=== PATIENT | male | born 1960 | race Caucasian/White ===

== ENCOUNTER 2025-04-11 07:41 | Day surgery (SDC) | payer OTHER, SELFPAY ==
--- NOTE | ~2025-04-11 | XR_ITS ---
EXAMINATION: XR fluoroscopy no charge DATE: 04/11/2025 08:58 INDICATION: Left hip articular branch block TECHNIQUE: 6 fluoroscopic images of the left hip were obtained during procedure performed by Dr. Mancilla. Radiologist was not present for the imaging or procedure. The amount of fluoroscopy time used during this procedure was 0.9 minutes. Total DAP was 16.11 mGy. COMPARISON: None. FINDINGS: Images demonstrate small amount of contrast extending to the soft tissues adjacent to the needle tips positioned along the medial margin of the base of the left inferior pubic ramus and along the anterosuperior margin of the left acetabulum or contrast extends craniocaudally along the course of the iliopsoas muscle and tendon. IMPRESSION: 1. Fluoroscopy utilized during pain management procedure at the left hip. See procedure note for further detail. Reviewed, dictated and finalized at location A. IMPRESSION: 1. Fluoroscopy utilized during pain management procedure at the left hip. See p rocedure note for further detail.
--- OUTSIDE RECORDS SUMMARY | 2025-04-11 07:45 | XMS_ITS | Patient Health Record ---
Author Organization [facility] Address [address] [place] [address] Care Team Providers Care Engine Installer Name Role Phone Marquise Reddy Primary Care Provider Jyotsna Almodovar Unavailable [phone] Allergies Allergen (clinical drug ingredient) Drug/Non Drug Allergy documented on EMR Reaction Allergy Type Onset Date Status Ceclor Unknown Drug Allergy Active Reason For Referral No Information Medications Medication SIG (Take, Route, Frequency, Duration) Notes Start Date End Date Status Betamethasone Dipropionate dipropionate 0.05% cream 1 tanya applied topically(Avoid Face) 2 times a day for 2 weeks on then take a 1 week break; Duration: 30 days Active Benadryl Active lidocaine topical Ac tive Immunizations Vaccine Route Administration Date Status Comme nts Influenza Unknown 01/30/2021 Refused Pneumococcal Unknown 01/30/2021 Refused Influenza Unknown 02/13/2021 Refused influenza Unknown 03/13/2021 Refused Social History Tobacco Use: Social History Observation Description Date Details (start date - stop date) Never Smoker NA - NA Social History General Social Info Question Answer Notes Alcohol Did you have a drink containing alcohol i n the past year? No Points 0 Interpretation Negative Smoking Status: never smoked Additional Details Category Social Info Options Details General Occupation Plastic Installer Recreational drug use No Exercise Yes Sunscreen use Yes Utilized a tanning bed No Body Piercings/Tattoos No Yes Section Notes: 1. Are you experiencing any of the following symptom? a. Fever/Chills of 100.4 or greater? b. Cough? c. Shortness of breath or difficulty breathing? d. New loss of taste or smell? e. Muscle or body aches? NO 2. Have you traveled internationally or been on a cruise ship within the last 14 days? NO 3. Have you been tested for COVID-19 and currently pending to receive results? NO 4. Do you reside in the same household as someone who tested positive for COVID- 19 within the last 10 days? NO 5. Have you been in close contact or been exposed to anyone that has tested positive for COVID-19 within the last 10 days? NO 1. Are you experiencing any of the following symptom? a. Fever/Chills of 100.4 or greater? b. Cough? c. Shortness of breath or difficulty breathing? d. New loss of taste or smell? e. Muscle or body aches? NO 2. Have you traveled internationally or been on a cruise ship within the last 14 days? NO 3. Have you been tested for COVID-19 and currently pending to receive results? NO 4. Do you reside in the same household as someone who tested positive for COVID- 19 within the last 10 days? NO 5. Have you been in close contact or been exposed to anyone that has tested positive for COVID-19 within the last 10 days? NO 1. Are you experiencing any of the following symptom? a. Fever/Chills of 100.4 or greater? b. Cough? c. Shortness of breath or difficulty breathing? d. New loss of taste or smell? e. Muscle or body aches? NO 2. Have you traveled internationally or been on a cruise ship within the last 14 days? NO 3. Have you been tested for COVID-19 and currently pending to receive results? NO 4. Do you reside in the same household as someone who tested positive for COVID- 19 within the last 10 days? NO 5. Have you been in close contact or been exposed to anyone that has tested positive for COVID-19 within the last 10 days? NO Problems Problem Type SNOMED Code ICD Code Onset Dates Problem Status W/U Status Risk Notes Problem Contact dermatitis (08257257) Contact dermatitis (L25.9) Active confirmed Problem Inflamed skin tag (L91.8) Active confirmed Problem Erythema intertrigo (45699957) Chafing (L30.4) Active confirmed Plan Of Treatment No Information Insurance Providers Payer Name Payer Address Payer Phone Subscriber Number Group Number Insured Name Patient Relationship to Insured Coverage Start Date Coverage End Date do not use [facility] Claims-ol d [address] [place] [address] [id number] Ousmane Chung Self - patient is the insured Medical (General) History Surgical History Surgery Date(Month/Year) pilonidal cyst removed 1972 foot surgery 2013
--- OUTSIDE RECORDS SUMMARY | 2025-04-11 07:45 | XMS_ITS | Encounter Summary ---
Author Organization [facility] Address [address] [place] [address] Care Team Providers Care Flat Cutter Name Role Phone Toan Manley MD Primary Care Provider + Encounter Details Date Type Department Care Team (Late st Contact Info) Description 02/07/2025 Results Follow-Up [facility] Primary Care at [address] [place] [address] Heide Pichardo NP [address] [facility] [address] [place] [address] Lipid panel Social History Tobacco Use Types Packs/Day Years Used Date Smoking Tobacco: Never PHQ-2 Answer Date Recorded PHQ-2 Total Score (If total score is 3 or more points, staff should administer the PHQ-9) 0 08/18/2024 PHQ-9 Answer Date Recorded PHQ-9 Total Score 2 08/18/2024 Sex and Gender Information Value Date Recorded Sex Assigned at Not on file 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
--- OUTSIDE RECORDS SUMMARY | 2025-04-11 07:45 | XMS_ITS | Clinical Summary ---
Author Organization [facility] [address] Address [address] [facility] [address] [place] [address] Care Team Providers Care Lasting Machine Operator Name Role Phone Toan Manley MD Primary Care Provider + Allergies Active Allergy Reactions Criticality Noted Date Comments Cefaclor Rash Medium 07/20/2024 Medications fluticasone propionate (FLONASE) 50 mcg/actuation nasal spray Administer 2 sprays into each nostril daily 3 each 4 5 Active cetirizine (ZyrTEC) 10 mg tablet Take 1 tablet (10 mg total) by mouth daily as needed for allergies 90 tablet 4 5 07/20/19 26 Active usxoqaurefq-I2-o yaluronic acid 1,000 mg- 25 mcg-1.65 mg tablet Take 2 tablets by mouth daily Active fish,bora,flax oils-om3,6,9no1 1,200 mg capsule Take 1 capsule by mouth daily Active rosuvastatin (CRESTOR) 10 mg tablet Take 1 tablet (10 mg total) by mouth daily 30 tablet 11 5 08/04/19 26 Active meloxicam (Mobic) 15 mg tabletIndication s:Osteoarthritis Take 1 tablet (15 mg total) by mouth daily 90 tablet 3 5 12/07/19 26 Active sildenafiL (VIAGRA) 100 mg tabletIndication s:Erectile Dysfunction Take 1 tablet (100 mg total) by mouth as needed for erectile dysfunction 7 tablet 11 06/24/12/07/19 Active ipratropium (ATROVENT) 42 mcg (0.06 %) nasal sprayIndications :Chronic Non-Allergic Rhinitis Administer 2 sprays into each nostril 4 (four) times a day 15 mL 3 Active Active Problems Problem Noted Date Diagnosed Date HLD (hyperlipidemia) 08/04/2024 Assessment & Plan (02/01/2025 8:29 AM CDT): Crestor 10 mg daily. Compliant with medication. Implement diet and lifestyle modification. ASCVD 10.4. Not a smoker. Orders: Lipid panel; Future Class 1 obesity due to exces s calories with body mass index (BMI) of 30.0 to 30.9 in adult 08/04/2024 Other male erectile dysfunction 07/20/2024 Assessment & Plan (02/01/2025 8:29 AM CDT): No issues with medication, works. No headache no postural hypotension - Continue current treatment Chronic bilateral low back pain with sciatica Assessment & Plan (02/01/2025 8:29 AM CDT): Chronic back pain using meloxicam 15 mg daily. Avoiding NSAIDs. - Continue current treatment - Tylenol okay Seasonal allergies 07/20/2024 Encounters Date Type Department Care Team Description 02/07/2025 8:10 AM CDT Lab [facility] - Outpatient Center at [address] [address] Mixed hyperlipidemia 02/07/2025 Results Follow-Up [facility] Primary Care at [address] [phone] Heide Pichardo NP Lipid panel 02/01/2025 8:15 AM CDT Office Visit [facility] Primary Care at [address] [phone] Toan Manley MD Mixed hyperlipidemia (Primary Dx); Other male erectile dysfunction; Chronic bilateral low back pain with sciatica, sciatica laterality unspecified 01/17/2025 Telephone [facility] Medical [facility] Primary Care at [address] [phone] Toan Manley MD 01/17/2025 Telephone [facility] Primary Care at [address] [phone] Toan Manley MD 01/13/2025 Telephone [facility] Primary Care at [address] [address] Toan Manley MD Referral Request from Last 3 Months Immunizations Immunization Administration Dates Next Due COVID-19 MRNA (MODERNA) .5 M L (50 MCG) VACCINE (12 YEARS AND UP) 08/15/2020 Influenza, Unspecified 02/12/2024,02/27/2023, Moderna Sars-cov-2 Monovalen t Booster Vaccination (12+ YRS) 04/10/2023,02/28/2022,05/24/2021,2020 RSV Vaccine, Pref, Recombina nt, Subunit, Adjuvanted, PF, IM (Arexvy) 07/31/2023 Sars-cov-2 Covid-19 Mrna, Bi valent, Original/omicron Ba.1, A 02/26/2024 ZOSTER Recombinant 04/04/2022 Surgical History Surgery Date Site/Laterality Comments VASECTOMY PILONIDAL CYSTECTOMY Medical History Medical History Date Comments Low back pain Mid back pain Chronic pain disorder Social History Tobacco Use Types Packs/Day Years Used Date Smoking Tobacco: Never Tobacco Cessation:Counseling Given: Not Answered PHQ-2 Answer Date Recorded PHQ-2 Total Score (If total score is 3 or more points, staff should administer the PHQ-9) 0 08/18/2024 PHQ-9 Answer Date Recorded PHQ-9 Total Score 2 08/18/2024 Sex and Gender Information Value Date Recorded Sex Assigned at Not on file Legal 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 Gender Identity Male 07/13/2024 8:37 AM BLOCK SAWYER Sexual Orientation Not on file Obstetrics History Last Filed Vital Signs Vital Sign Reading Time Taken Comments Blood Pressure 124/84 02/01/2025 8:06 AM CDT Pulse 59 02/01/2025 8:06 AM CDT Temperature 36.5 C (97.7 F) 02/01/2025 8:06 AM CDT Respiratory Rate 16 02/01/2025 8:06 AM CDT Oxygen Saturation 97% 02/01/2025 8:06 AM CDT Inhaled Oxygen Concentration - - Weight 100.7 kg (222 lb) 02/01/2025 8:06 AM CDT Height 182.9 cm (6') 02/01/2025 8:06 AM CDT Body Mass Index 30.11 02/01/2025 8:06 AM CDT Plan of Treatment Health Maintenance Due Date Last Done Comments Colon Cancer Screening-Colonoscopy 1960 Hepatitis C Screening 1960 Prostate Cancer Screening-PSA 1960 DTaP/Tdap/Td Vaccine (1 - Tdap) 1971 Hepatitis B Screening 1978 Zoster Vaccine (2 of 2) 05/30/2022 04/04/2022 Influenza Vaccine (#1) 2025 4, 02/27/2023, 02/28/2022 Regular Well Visit/Exam 18-64 07/20/2025 07/20/2024 Depression Screening 08/18/2025 08/18/2024, 08/18/2024, 07/20/2024, Additional history exists Pneumococcal vaccine <65 Aged Out No longer eligible based on patient's age to complete this topic Procedures Procedure Name Priority Date/Time Associated Diagnosis Comments LIPID PANEL Routine 02/07/2025 8:14 AM CDT Mixed hyperlipidemia from Last 3 Months Results * Lipid panel (02/07/2025 8:14 AM CDT) Cholesterol 129 30 - 199 mg/dL Comment: Interpretive Data Ages < or = 19 years Acceptable: <170 mg/dL Borderline high: 170-199 mg/dL High: >or= 200 mg/dL Ages > or = 20 years Desirable: <200 mg/dL Borderline high: 200-239 mg/dL High: >or= 240 mg/dL Literature References: 1. Expert Panel on Integrated Guidelines for Cardiovascular Health and Risk Reduction in Children and Adolescents. Pediatrics 2011;128:S213 2. NCEP Expert Panel. Circulation 2004;110:227 Current Interpretive Data was last revised on 2018. Testing performed by: [address] [address] Triglycerides 113 <=149 mg/dL [facility] Comment: Interpretive Data Ages < or = 9 years Acceptable: <75 mg/dL Borderline high: 75-99 mg/dL High: >or= 100 mg/dL Ages 10 to 20 years Acceptable: <90 mg/dL Borderline high: 90-129 mg/dL High: >or= 130 mg/dL Ages > or = 20 years Desirable: <150 mg/dL Borderline high: 150-199 mg/dL High: 200-499 mg/dL Very high: >or= 499 mg/dL Literature References: 1. Expert Panel on Integrated Guidelines for Cardiovascular Health and Risk Reduction in Children and Adolescents. Pediatrics 2011;128:S213 2. NCEP Expert Panel. Circulation 2004;110:227 Current Interpretive Data was last revised on 2018. Testing performed by: [facility], [address] [place] [address]., [address] HDL 41 >=40 mg/dL [facility] Comment: Interpretive Data Ages < or = 19 years Acceptable: >45 mg/dL Borderline low: 40-45 mg/dL Low: <40 mg/dL Ages > or = 20 years Desirable: >or= 60 mg/dL Low: <40 mg/dL Literature References: 1. Expert Panel on Integrated Guidelines for Cardiovascular Health and Risk Reduction in Children and Adolescents. Pediatrics 2011;128:S213 2. NCEP Expert Panel. Circulation 2004;110:227 Current Interpretive Data was last revised on 2018. Testing performed by: [address] [address] LDL, calculated 67 <=129 mg/dL [facility] Comment: Interpretive Data Ages < or = 19 years Acceptable: <110 mg/dL Borderline high: 110-129 mg/dL High: >or= 130 mg/dL Ages > or = 20 years Optimal: <100 mg/dL Near optimal: 100-129 mg/dL Borderline high: 130-159 mg/dL High: >160 mg/dL Calculated using the Lock LDL-C estimating equation. This equation was implemented on 2024. Prior to this date LDL-C was estimated using the Friedewald equation. Literature References: 1. Expert Panel on Integrated Guidelines for Cardiovascular Health and Risk Reduction in Children and Adolescents. Pediatrics 2011;128:S213 2. NCEP Expert Panel. Circulation 2004;110:227 3. Ashvin Munoz et al. ARMIDA Cardiol. 2019October 13;5(5):540-548. doi: 10.1001/[email or web address] Current Interpretive Data was last revised on 2024. Testing performed by: [address] [address] Non-HDL Cholesterol 88 mg/dL [facility] Comment: Interpretive Data Ages < or = 19 years Acceptable: <120 mg/dL Borderline high: 120-144 mg/dL High: >145 mg/dL Ages > or = 20 years When triglycerides are >200 mg/dL, Non-HDL cholesterol is a secondary target of therapy with treatment goals that are 30 mg/dL greater than the LDL cholesterol target. Literature References: 1. Expert Panel on Integrated Guidelines for Cardiovascular Health and Risk Reduction in Children and Adolescents. Pediatrics 2011;128:S213 2. NCEP Expert Panel. Circulation 2004;110:227 Current Interpretive Data was last revised on 2018. Testing performed by: [address] [address] Chol/HDL ratio 3 [facility] Comment:Testing performed by : [address] [address] Blood 02/07/2025 8:14 AM CDT 02/07/2025 12:41 PM CDT us Toan Manley MD LAB BLOOD ORDERABLES Fin al Result [facility] [address] [place] [address] Department [place] [address] from Last 3 Months Insurance [facility] CLAIMS Care Teams Lasting Machine Operator Relationship Specialty Start Date End Date Toan Manley MD [address] [facility] [address] [place] [address] PCP - General Family Medicine 07/20/24
[2025-04-11 07:59] VITALS: BP 122/76; PULSE 58; RESP 18; TEMP 36.7; O2SAT 99
--- NOTE | 2025-04-11 08:02 | PM.HPGS ---
History of Present Illness History of Present Illness Consent: Risks, benefits, and alternatives have been discussed and questions answered. Patient agrees to proceed with procedure. Chief complaint: Left Hip Pain, hip osteoarthritis Narrative: Ousmane Chung is a 64 year old male with chronic, recalcitrant and disabling left hip and groin pain secondary to degenerative osteoarthritis with failure to respond to aggressive conservative measures including PT, oral and topical analgesics, opioid and nonopioid analgesics, rest, time and activity/behavioral modification over the past 1-2 years who presents for diagnostic/prognostic articular branch blocks of the left femoral and obturator nerves (#1) addressing the left hip joint under fluoroscopic guidance and with contrast control. Review of Systems Review of Systems: Patient denies any new infectious, allergic, cardiopulmonary, neurologic or constitutional symptoms or changes in activity tolerance or exercise capacity including new or progressive SOB/STATON, peripheral edema, productive cough, dysuria, nausea/vomiting, diarrhea, weight change, fevers/chills/night sweats, new or progressive neurologic deficit, cognitive or mood changes since last seen, except as documented in the HPI. All systems reviewed & are unremarkable except as noted in HPI and below PMFSH Past Medical History Medical History (Updated 04/11/25 @ 08:05 by Ministerio Mancilla MD) Left hip pain Allergies Dorsalgia Bilateral hip pain Lumbar stenosis Lumbar spondylosis Lumbar radiculopathy Family History Family History (Updated 02/23/25 @ 09:46 by oCurt Niño MA) Mother Bone cancer Sibling Diabetes mellitus Grandparent Pneumonia Pancreatic cancer Social History Social History (Updated 02/23/25 @ 09:[address] Niño MA) Smoking status: Never smoker Alcohol intake: never Substance use: never Substance use type: does not use Living arrangements: with family Additional living arrangements comments: Spiritual care concerns: No Meds Home Medications and Allergies Home Medications ?Medication ?Instructions ?Recorded ?Confirmed ?Type flaxseed oil 1,300 mg capsule mg PO DAILY 02/23/25 02/23/25 History fluticasone propionate 50 1 inh inhalation ONCE 02/23/25 04/11/25 History mcg/actuation blister powder for inhalation meloxicam 15 mg tablet 15 mg PO DAILY 02/23/25 04/11/25 History rosuvastatin 10 mg tablet 10 mg PO DAILY 02/23/25 04/11/25 History sildenafil 100 mg tablet (Viagra) 100 mg PO DAILY PRN erectile 02/23/25 04/11/25 History dysfunction cetirizine 10 mg capsule (All Day 10 mg PO DAILY 03/30/25 04/11/25 History Allergy (cetirizine)) Allergies Allergy/AdvReac Type Severity Reaction Status Date / Time cefaclor (From [facility]) Allergy Intermediate Rash Verified 04/11/25 07:58 Vital Signs Vital Signs - 24 hr 04/11/25 07:59 Temperature 98.1 F Pulse Rate 58 L Respiratory Rate 18 Blood Pressure 122/76 Pulse Oximetry 99 Oxygen Delivery Room Air Exam Narrative: The patient's physical exam is essentially unchanged from prior examination on 02/23/2025. Specifically, patient demonstrates normal lung capacity, tidal volume and respiratory rate without wheezes, crackles, rales or rubs. Heart rate and rhythm are regular without murmurs, gallops or rubs. No JVD. Pulses 2+ globally without increasing peripheral edema. AAOx3 with no evidence of confusion, intoxication or altered mental state, NC/AT without acute distress or altered consciousness. Speech, cognition, mood, insight and judgment at baseline and within normal limits. Assessment and Plan Assessment and plan (1) Left hip pain: Code(s): M25.552 - Pain in left hip Status: Acute (2) Osteoarthritis of left hip: Code(s): M16.12 - Unilateral primary osteoarthritis, left hip Status: Acute Assessment and Plan: Proceed as planned with diagnostic/prognostic articular branch blocks of the left femoral and obturator nerves (#1) addressing the left hip joint under fluoroscopic guidance and with contrast control. (3) Chronic pain: Code(s): G89.29 - Other chronic pain Status: Acute
--- NOTE | 2025-04-11 08:06 | WPDHPUPDATE1 ---
History and Physical Update Update Date/Time: 04/11/25 08:06 History and Physical has been reviewed, including an updated exam of the patient. There are NO changes in the patient's condition. Risks, benefits, and alternatives have been discussed and questions answered. Patient agrees to proceed with procedure.
--- NOTE | 2025-04-11 08:07 | P.OP_ITS ---
Procedure Note - Detailed Date of Procedure 04/11/25 Pre-op Diagnosis Left Hip Pain, hip osteoarthritis Post-op Diagnosis Same Procedure Performed Left Prognostic Femoral Articular and Obturator Articular Branch Blocks under Fluoroscopic Guidance with Contrast Control. Surgeon Ministerio Mancilla MD Anesthesia Local Description of Procedure INFORMED CONSENT: Risks, benefits and alternatives to the procedure were discussed in detail with the patient who expressed explicit understanding and consent to proceed. Patient was informed verbally and in written form regarding the risks associated with the procedure including the low risk of serious infection, bleeding/bruising, allergic reaction, nerve injury, paralysis, procedural site pain or discomfort, worsening pain and/or mobility, failure to treat and disfigurement. The patient expressed explicit understanding and consent to proceed. All materials required for the procedure were available prior to procedure start. Site and side was marked prior to procedure and confirmed in the presence of the patient. PROCEDURE IN DETAIL: The patient was brought to the procedural suite and placed in the supine position. Patient was made comfortable with use of pillows under the head/shoulder, knees and ankles. Skin overlying anterior and anterolateral surface of the pelvis and thigh at the level of inguinal crease was prepared broadly with ChloraPrep applicator and draped in a sterile manner. Aseptic technique was used throughout. The hip joint of interest was identified in the AP projection and view aligned with the plane of the ipsilateral obturator foramen. Location and course of the femoral artery, vein and accompanying nerve was identified by palpation of the arterial pulse and marked with a sterile skin marker. Local anesthesia was established by infiltration with approximately 3 mL of 0.5% lidocaine via a 1-1/2 inch 27- gauge needle. A 22-gauge 5-inch quincke spinal needle was intermittently advanced in the lateral and superior direction in the AP view (avoiding the course of the femoral vessels) until the needle tip contacted the anterior surface of the medial wall of the obturator foramen. Needle was advanced superiorly until positioned just inferior to the ischial isthmus at the location of the left obturator articular branches. After negative aspiration for blood, CSF or bodily fluid, 0.5 ml of Omnipaque 300 contrast medium was injected demonstrating lack of intra-articular, intravascular dye pattern. After repeat negative aspiration, 0.5ml of 0.5% PF Bupivacaine was injected to effectively block the targeted peripheral nerve. Previously injected contrast was diluted by local anesthetic confirming appropriate spread. No parasthesias elicited. Patient tolerated well. Attention was then turned to the completion of the femoral articular branch block. In the AP projection, a site inferior and lateral to the ipsilateral ASIS was anesthetized by local infiltration with approximately 3 mL of 0.5% lidocaine via a 1-1/2 inch 27-gauge needle. A 22-gauge 5-inch quincke spinal needle was in termittently advanced in medial to lateral direction in the AP view until the needle tip contacted the anterior surface of the superior portion of the acetabulum 5mm superior to the intra-articular space at a point bisecting the femoral head, the approximate location of the left femoral articular branches. After negative aspiration for blood, CSF or bodily fluid, 0.5 ml of the same contrast medium was injected demonstrating lack of intra-articular, intravascular dye pattern. After repeat negative aspiration, 0.5ml of the same local anesthetic mixture was injected to effectively block the targeted peripheral nerve. Previously injected contrast was diluted by local anesthetic confirming appropriate spread. No parasthesias elicited. Patient tolerated the procedure well. Images were saved and documented in the patient chart. Patient's skin was cleansed and sterile bandage applied. The patient tolerated the procedure well. The patient was transported to the recovery area in stable condition where they were observed for an appropriate amount of time prior to discharge, without evidence of complication. Patient was instructed on the completion of a pain diary prior to discharge and instructed to bring this diary with them to their next follow up evaluation. The patient was instructed to avoid excessive activity for the next 48 hours, including frequent use of stairs. They are to monitor for fevers, chills, night sweats, erythema/swelling at the site or any other signs of infection, bleeding/bruising as well as new pain, weakness or numbness in the upper extremity. Should they notice these changes, they are instructed to call our office or report immediately to the nearest Emergency Department if no answer or if after posted office hours. CONTRAST WASTED: 29 ml Omnipaque 300 Complications No immediate complications Condition Stable Disposition Same day [facility] Billing Surgery - Charge Forward: Surgery Billing
[2025-04-11 08:49] VITALS: BP 148/82; PULSE 58; RESP 18; O2SAT 97
[2025-04-11 08:52] VITALS: BP 142/76; PULSE 57; RESP 16; O2SAT 98
[2025-04-11] MEDS: BUPivacaine HCL 0.5% 10 ML AMP (08:52)
[2025-04-11 08:58] VITALS: BP 127/72; PULSE 57; RESP 16; O2SAT 100
== END 2025-04-11 09:13 | disposition home or self-care (01) ==
PROVIDERS: Visit Provider Anesthesiology Pain Medicine
PROC: (CPT 64447; principal; 2025-04-11 08:50)
DX: M25.552 Pain in left hip (principal); M16.12 Unilateral primary osteoarthritis, left hip; G89.29 Other chronic pain
CPT/HCPCS: 64447; 64450; 99199

== ENCOUNTER 2025-05-16 00:56 | Day surgery (SDC) | payer MEDICARE, OTHER, SELFPAY ==
[2025-04-28 11:08] VITALS: BMI 30.4
--- NOTE | 2025-04-28 11:16 | PC.NURSE ---
[facility] has started construction of its new state of the art ER which will open Spring 2026. With this, we anticipate parking may be a challenge for some our surgical patients and families. Parking spaces are limited but are available for all Surgical, obstetrics, and ER patients sharing this lot. If you arrive and find you are having a hard time finding a parking space, please note that we understand the challenges, please drive around the hospital and park near Hospital Entrance 1. When you enter this entrance, you can ask a volunteer to direct or take you back to the surgical waiting area to check in. We appreciate everyone?s understanding of these expected challenges while we build for your future. Report to the Outpatient Waiting Room, entrance under the green pavilion located off [address], at time __0700am on date __05/16/25 . Planned Procedure Time: __0800am .? Time changes happen often and if your time is changed the preop area will call you the afternoon before. - You and your visitor will be asked to self-screen and do not enter if you have any COVID symptoms. Please call surgeon if you need to reschedule. - A mask is optional within the hospital at this time. Patients may have No food from midnight, but may have clear liquids (water, carbonated beverages, clear teas, apple juice) until 2 hours prior to surgery with a maximum of 20 ounces. (0600am) Take only the following medications with a SIP of water on the morning of surgery: ____All am meds except Meloxicam DO NOT STOP ANY OF YOUR OTHER PRESCRIPTION MEDICATIONS PRIOR TO SURGERY EXCEPT THE FOLLOWING Hold all vitamins and supplements for 3 days per anesthesiologist. Medications to discontinue per physician ____Meloxicam for [address] Muñoz Date to take last dose____05/08/25 Please no make-up, nail moroccan, hairspray, perfume, deodorant, or body powder the day of surgery.? No jewelry (including any body piercings) or valuables the day of surgery, leave them at home.? Please take a shower or bath the night before, & the morning of surgery with an antibacterial soap. (Dial Soap)? Wear comfortable, loose fitting clothing. ? NO DRIVING FOR [address] MUÑOZ Pt aware - Jewelry must be removed prior to entering the operating room.? Rings and piercings that are not removed may be cut off. - The hospital will not accept responsibility for valuables.? - Please leave all valuables, including medications, at home the day of surgery. If you are going home after surgery, a licensed cross country truck driver must drive you home.? - NO public transportation without another adult if you receive anesthesia. - We recommend that an adult stay with you for 24 hours following discharge. - We also recommend that you do not drive, make important decision, drink alcoholic beverages, or take any drugs that were not prescribed by your health care provider for at least 24 hours after your discharge time. Follow any additional instructions given to you from your surgeon. Telephone instructions given to ___Patient and asked if any additional questions and then verbalized understanding. Patient advised to call surgeon office or pre surgery nurse liaison [phone] if any additional questions.
--- NOTE | ~2025-05-16 | XR_ITS ---
XR fluoroscopy no charge Indication: Articular branch block left hip TECHNIQUE: Fluoroscopy used during Articular branch block left hip performed by [Ministerio Mancilla MD] on 05/16/2025. 48 seconds with 4 fluoroscopic images captured. FINDINGS: Correlate with procedure note. IMPRESSION: Fluoroscopy used during Articular branch block left hip. Reviewed, dictated and finalized at location I. ENFORCEMENT SUPERVISOR
--- OUTSIDE RECORDS SUMMARY | 2025-05-16 00:59 | XMS_ITS | Clinical Summary ---
Author Organization [facility] [address] Address [address] [place] [address] Care Team Providers Care [employer] Supervisor Name Role Phone Toan Manley MD Primary [...] 90 tablet 4 5 07/20/19 26 Active axlkffblfbp-D2-k yaluronic acid 1,000 mg- 25 mcg-1.65 mg tablet Take 2 tablets by mouth daily Active fish,bora,flax oils-om3,6,9no1 1,200 mg capsule Take 1 capsule by mouth daily Active meloxicam (Mobic) 15 mg tabletIndication s:Osteoarthritis Take 1 tablet (15 mg total) by mouth daily 90 tablet 3 5 12/07/19 26 Active sildenafiL (VIAGRA) 100 mg tabletIndication s:Erectile Dysfunction Take 1 tablet (100 mg total) by mouth as needed for erectile dysfunction 7 tablet 11 5 12/07/19 26 Active ipratropium (ATROVENT) 42 mcg (0.06 %) nasal sprayIndications :Chronic Non-Allergic Rhinitis Administer 2 sprays into each nostril 4 (four) times a day 15 mL 3 5 Active rosuvastatin (CRESTOR) 10 mg tablet TAKE 1 TABLET(10 MG) BY MOUTH DAILY 100 tablet 1 5 Active Active Problems Problem Noted Date Diagnosed [...] treatment - Tylenol okay Seasonal allergies 07/20/2024 Immunizations Immunization Administration Dates Next Due COVID-19 MRNA (MODERNA) .5 M L (50 MCG) VACCINE (12 YEARS AND UP) 08/15/2020 Influenza, Unspecified 02/12/2024,02/27/2023, Moderna Sars-cov-2 Monovalen t Booster Vaccination (12+ YRS) 04/10/2023,02/28/2022,05/24/2021,2020 RSV Vaccine, Pref, Recombina nt, Subunit, Adjuvanted, PF, IM (Arexvy) 07/31/2023 Sars-cov-2 Covid-19 Mrna, Bi valent, Original/gabriel Rubio1 A 02/26/2024 ZOSTER Recombinant 04/04/2022 Surgical History [...] on file 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 Gender Identity Male 07/13/2024 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 CLAIMS Care Teams [employer] Supervisor Relationship Specialty Start Date End Date Toan Manley MD [id number] [facility] [address] [place] [address] PCP - General Family Medicine 07/20/24
--- NOTE | 2025-05-16 06:00 | WPDHPUPDATE1 ---
History and Physical Update Update Date/Time: 05/16/25 06:00 History and Physical has been reviewed, including an updated exam of the patient. There are NO changes in the patient's condition. Risks, benefits, and alternatives have been discussed and questions answered. Patient agrees to proceed with procedure.
--- NOTE | 2025-05-16 06:01 | P.OP_ITS ---
Procedure Note - Detailed Date of Procedure 05/16/25 Pre-op Diagnosis pain left hip Post-op Diagnosis Same Procedure Performed Left Diagnostic/Prognostic Femoral Articular and Obturator Articular Branch Blocks under Fluoroscopic Guidance with Contrast Control. Surgeon Ministerio Mancilla MD Anesthesia Local Description of Procedure INFORMED CONSENT: Risks, benefits and alternatives to the procedure were discussed in detail with the patient who expressed explicit understanding and consent to proceed. Patient was informed verbally and in written form regarding the risks associated with the procedure including the low risk of serious infection, bleeding/bruising, allergic reaction, nerve injury, paralysis, procedural site pain or discomfort, worsening pain and/or mobility, failure to treat and disfigurement. The patient expressed explicit understanding and consent to proceed. All materials required for the procedure were available prior to procedure start. Site and side was marked prior to procedure and confirmed in the presence of the patient. PROCEDURE IN DETAIL: The patient was brought to the procedural suite and placed in the supine position. Patient was made comfortable with use of pillows under the head/shoulder, knees and ankles. Skin overlying anterior and anterolateral surface of the pelvis and thigh at the level of inguinal crease was prepared broadly with ChloraPrep applicator and draped in a sterile manner. Aseptic technique was used throughout. The hip joint of interest was identified in the AP projection and view aligned with the plane of the ipsilateral obturator foramen. Location and course of the femoral artery, vein and accompanying nerve was identified by palpation of the arterial pulse and marked with a sterile skin marker. Local anesthesia was established by infiltration with approximately 3 mL of 0.5% lidocaine via a 1-1/2 inch 27- gauge needle. A 22-gauge 5-inch quincke spinal needle was intermittently advanced in the lateral and superior direction in the AP view (avoiding the course of the femoral vessels) until the needle tip contacted the anterior surface of the medial wall of the obturator foramen. Needle was advanced superiorly until positioned just inferior to the ischial isthmus at the location of the left obturator articular branches. After negative aspiration for blood, CSF or bodily fluid, 0.5 ml of Omnipaque 300 contrast medium was injected demonstrating lack of intra-articular, intravascular dye pattern. After repeat negative aspiration, 0.5ml of 2.0% PF Lidocaine was injected to effectively block the targeted peripheral nerve. Previously injected contrast was diluted by local anesthetic confirming appropriate spread. No parasthesias elicited. Patient tolerated well. Attention was then turned to the completion of the femoral articular branch block. In the AP projection, a site inferior and lateral to the ipsilateral ASIS was anesthetized by local infiltration with approximately 3 mL of 0.5% lidocaine via a 1-1/2 inch 27-gauge needle. A 22-gauge 5-inch quincke spinal needle was intermittently advanced in medial to lateral direction in the AP view until the needle tip contacted the anterior surface of the superior portion of the acetabulum 5mm superior to the intra-articular space at a point bisecting the femoral head, the approximate location of the left femoral articular branches. After negative aspiration for blood, CSF or bodily fluid, 0.5 ml of the same contrast medium was injected demonstrating lack of intra-articular, intravascular dye pattern. After repeat negative aspiration, 0.5ml of the same local anesthetic mixture was injected to effectively block the targeted perip heral nerve. Previously injected contrast was diluted by local anesthetic confirming appropriate spread. No paresthesias elicited. Patient tolerated the procedure well. Images were saved and documented in the patient chart. Patient's skin was cleansed and sterile bandage applied. The patient tolerated the procedure well. The patient was transported to the recovery area in stable condition where they were observed for an appropriate amount of time prior to discharge, without evidence of complication. Patient was instructed on the completion of a pain diary prior to discharge and instructed to bring this diary with them to their next follow up evaluation. The patient was instructed to avoid excessive activity for the next 48 hours, including frequent use of stairs. They are to monitor for fevers, chills, night sweats, erythema/swelling at the site or any other signs of infection, bleeding/bruising as well as new pain, weakness or numbness in the upper extremity. Should they notice these changes, they are instructed to call our office or report immediately to the nearest Emergency Department if no answer or if after posted office hours. CONTRAST WASTED: 14ml Omnipaque 300 Complications No immediate complications Condition Stable Disposition Same day [facility] Billing Surgery - Charge Forward: Surgery Billing
[2025-05-16 06:41] VITALS: BP 139/65; PULSE 66; RESP 20; TEMP 36.9; O2SAT 96
[2025-05-16 07:27] VITALS: BP 121/58; PULSE 61; RESP 12; O2SAT 96
[2025-05-16] MEDS: LIDOCAINE 1% LOCAL INJ 10 ML VIAL 5 ML INFILTRATE (07:32)
[2025-05-16] MEDS: LIDOCAINE 2% LOCAL INJ 20 ML VIAL 5 ML INFILTRATE (07:32)
[2025-05-16 07:37] VITALS: BP 112/56; PULSE 58; RESP 12; O2SAT 96
[2025-05-16 07:45] VITALS: BP 116/64; PULSE 59; RESP 16; O2SAT 97
== END 2025-05-16 07:55 | disposition home or self-care (01) ==
PROVIDERS: PCP Family Medicine; Visit Provider Anesthesiology Pain Medicine
PROC: (CPT 64450; principal; 2025-05-16 07:30)
DX: M25.552 Pain in left hip (principal)
CPT/HCPCS: 64450; 64447; 99199; J2003